=== PATIENT | female | born 1950 | race Caucasian/White ===

== ENCOUNTER 2017-11-08 08:00 | Observation (INO) | payer MEDICARE, OTHER ==
[~2017-11-08] VITALS: Ht 167.6 cm; Wt 102.5 kg
[~2017-11-08 08:00] MED LIST: AMBIEN10 MG PO; AMIODARONE HCL400 MG PO; ASPIRIN325 MG PO; BACLOFEN PO; BENTYL10 MG PO; ECOTRIN81 MG PO; FLURAZEPAM HCL30 MG PO; LISINOPRIL40 MG PO; LORTAB 10-5001 EACH PO; MULTI VIT; OMEPRAZOLE40 MG PO; SOMA350 MG PO; TYLENOL 4 PO; VITAMIN D2000 UNIT PO; VITAMIN E400 UNI3 PO
[2017-11-08] MEDS ORDERED: SODIUM CHLORIDE 0.9% 500ML 1,000 ML ONE ×2 (08:39→09:39)
[2017-11-08] MEDS ORDERED: SODIUM CHLORIDE 0.9% 500ML 500 ML ONE (08:39)
[2017-11-08] MEDS ORDERED: SODIUM CHLORIDE 0.9% 1000ML 1,000 ML IV STA (08:56)
[2017-11-08 09:49] LABS: BASOPHILS % 0.1 % (0.0-1.0); HEMATOCRIT 37.9 % (34.2-44.1); HEMOGLOBIN 11.9 g/dL (12.0-16.0); LYMPHOCYTES # (AUTO) 0.9 (1.0-3.2); LYMPHOCYTES % 13.2 % (18.0-39.1); MEAN CORPUSCULAR HEMOGLOBIN 31.2 pg (28-32); MEAN CORPUSCULAR HGB CONC 31.4 g/dL (31-35); MEAN CORPUSCULAR VOLUME 99.2 fL (81-99); MONOCYTES # (AUTO) 0.9 (0.2-0.8); MONOCYTES % 13.4 % (4.4-11.3); NEUTROPHILS # (AUTO) 5.1 (2.1-6.9); NEUTROPHILS % 72.9 % (38.7-80.0); PLATELET COUNT 200 x10e3/uL (140-360); RED BLOOD COUNT 3.82 x10e6/uL (3.6-5.1); RED CELL DISTRIBUTION WIDTH 13.9 % (11.7-14.4)
[2017-11-08 10:06] LABS: INR 0.9; PARTIAL THROMBOPLASTIN TIME 33.7 seconds (23.8-35.5); PROTHROMBIN TIME 12.6 seconds (11.9-14.5)
[2017-11-08 10:16] LABS: ALBUMIN 3.4 g/dL (3.5-5.0); ALBUMIN/GLOBULIN RATIO 1.1 (0.8-2.0); CALCIUM 9.2 mg/dL (8.4-10.2); CREATININE, SERUM 1.23 mg/dL (0.57-1.11)
[2017-11-08 10:49] LABS: CREATINE KINASE MB 1.4 ng/mL (0.00-5.00); TROPONIN I 0.019 ng/mL (0-0.300)
[2017-11-08 11:09] LABS: BILIRUBIN,URINE NEGATIVE (NEGATIVE); CLARITY,URINE CLEAR (CLEAR); COLOR,URINE YELLOW (YELLOW); KETONES,URINE NEGATIVE (NEGATIVE); LEUKOCYTE ESTERASE ,URINE NEGATIVE (NEGATIVE); NITRITE,URINE NEGATIVE (NEGATIVE); PROTEIN,URINE DIPSTICK NEGATIVE (NEGATIVE); URINE UROBILINOGEN 0.2 mg/dL (0.2 - 1)
--- NOTE | 2017-11-08 11:20 | Diagnostic Imaging Report ---
EXAM: CHEST SINGLE (PORTABLE) DATE: 11/08/2017 8:56 AM INDICATION: Shortness of breath COMPARISON: 02/02/2017 FINDINGS: Heart upper limits of normal, stable. Aortic vascular calcifications and hilar prominence similar. There is mild prominence of the interstitium. No pneumothorax or focal consolidation. IMPRESSION: Questionable mild edema. Signed by: Dr. Garrett Russell MD on 11/08/2017 11:16 AM
[2017-11-08] MEDS ORDERED: ONDANSETRON HCL INJ 2 MG/ML VIAL IV STA (12:05)
--- NOTE | 2017-11-08 12:13 | Diagnostic Imaging Report ---
EXAMINATION: Head CT HISTORY: Status post fall, head trauma, pain on the left side, vertigo COMPARISON: None. TECHNIQUE: Multidetector axial images were obtained without contrast from the foramen magnum to the vertex . The images were reconstructed using brain and bone algorithms. Thin section brain images were reformatted into coronal and sagittal planes. Intravenous contrast: None. Motion/streaking artifact limits the evaluation of the skull base and posterior cranial fossa. FINDINGS: Parenchyma: 1. No abnormal densities. 2. No mass or hemorrhage. No CT evidence of acute territorial vascular insult. Extra-axial spaces:No abnormal density. No extra-axial fluid collections Brain volume: Normal for age. Ventricles: No hydrocephalus or displacement. Arteries: No density suggestive of thrombus. Dural sinuses: No abnormal density. Extra-axial spaces: No abnormal density. Foramen magnum: No mass, Chiari malformation, or basilar invagination. Sella: No obvious mass. Paranasal/mastoid sinuses: Imaged portions unremarkable. Skull/Scalp: No lytic or blastic lesions. No fractures. IMPRESSION: Normal head CT. Particularly no post traumatic intracranial hemorrhage is seen. Signed by: Dr. Jemma Bahena M.D. on 11/08/2017 12:09 PM
[2017-11-08] MEDS ORDERED: SODIUM CHLORIDE 0.9% 1000ML 1,000 ML ONE (12:14)
[2017-11-08] MEDS ORDERED: SODIUM CHLORIDE 0.9% 1000ML 1,000 ML IV SCH (12:15)
--- NOTE | 2017-11-08 12:26 | Diagnostic Imaging Report ---
ADDENDUM #1 Addendum: Dilated pulmonary trunk, which can be seen in the setting of pulmonary hypertension. Signed by: Dr. Garrett Russell MD on 11/08/2017 1:22 PM ORIGINAL REPORT EXAM: CTA Chest WITH and without contrast. DATE: 11/08/2017 11:04 AM INDICATION: Pain. Concern for dissection. COMPARISON: None TECHNIQUE: CT angiogram of the chest was obtained before and after the administration of IV contrast. Prospective gating was performed. Images reviewed in the axial, coronal, and sagittal planes. 3D reconstructions performed on off-line workstation. Reformatted axial MIP images were obtained and reviewed. IV Contrast: See technologist worksheet. Total DLP: 992 mGy*cm Est. Eff. Dose DLP x 0.015 x size factor mSv (CTDIvol has been reviewed and is below limits set by [facility]). FINDINGS: Lines and Tubes: None. Lower Neck: The visualized thyroid gland is grossly unremarkable with no suspicious or significant nodule identified. Heart and Great Vessels: The pulmonary artery measure 42 mm. The cardiothoracic radio measures 15/27. No pericardial effusion. No intracardiac filling defect identified. No central pulmonary embolus. Peripheral evaluation limited. Moderate aortic atherosclerotic changes present. No dissection identified. Aortic Annulus: 24 mm. Sinus of Valsalva: 35 mm. Ascending Aorta at level of PA: 35 mm. Mid Arch: 32 mm. Proximal Descendin mm. Mid Descendin mm. Distal Descendin mm. Other: At least moderate narrowing proximal left subclavian artery. Lymph Nodes: No suspicious adenopathy. Lungs: Concavity posterior wall trachea consistent with expiratory imaging. Scattered groundglass and linear opacities statistically represent atelectasis. No pneumothorax or pleural effusion. Upper abdomen: Limited evaluation. No acute findings. Bones and Soft Tissues: No acute findings. IMPRESSION: 1. No aortic aneurysm or dissection. 2. No central pulmonary embolus. 3. At least moderate narrowing proximal left subclavian artery. Signed by: Dr. Garrett Russell MD on 11/08/2017 12:22 PM
[2017-11-08] MEDS ORDERED: SODIUM CHLORIDE 0.9% 50ML 50 ML ONE (13:26)
[2017-11-08] MEDS ORDERED: IOPAMIDOL 370 MG/ML 200 ML INFUS..BTL INJ ONE (13:26)
[2017-11-08] MEDS ORDERED: ONDANSETRON HCL INJ 2 MG/ML VIAL IV PRN (13:30)
[2017-11-08] MEDS ORDERED: ALBUTEROL/IPRATROPIUM 3 ML NEB NEB PRN (13:30)
[2017-11-08] MEDS: SODIUM CHLORIDE 0.9% 1000ML 1,000 ML IV SCH (16:40)
[2017-11-08] MEDS: DOXYCYCLINE HYCLATE TABLET 100 MG TAB PO SCH (16:41)
[2017-11-08] MEDS ORDERED: LISINOPRIL10 MG PO (18:04)
[2017-11-08] MEDS ORDERED: BACLOFEN10 MG PO (18:04)
[2017-11-08] MEDS ORDERED: AMBIEN10 MG PO (18:04)
[2017-11-08] MEDS ORDERED: AMLODIPINE BESYL5 MG PO (18:07)
[2017-11-08] MEDS ORDERED: TYLENOL WITH C1 EAC1 PO (18:07)
[2017-11-08] MEDS ORDERED: MULTIVITAMINS1 EAC7 PO (18:07)
[2017-11-08] MEDS ORDERED: ECOTRIN81 MG PO (18:09)
[2017-11-08 18:23] VITALS: BP 126/57
[2017-11-08 18:30] VITALS: BP 126/57
[2017-11-08 18:59] LABS: CREATINE KINASE MB 1.1 ng/mL (0.00-5.00); TROPONIN I 0.021 ng/mL (0-0.300)
[2017-11-08] MEDS: ACETAMINOPHEN/CODEINE 300MG - 30MG TAB PO PRN (21:02)
[2017-11-08] MEDS: BACLOFEN 10 MG TAB PO SCH (21:02)
[2017-11-08] MEDS: DICYCLOMINE HCL 10 MG CAP PO SCH (21:02)
[2017-11-08] MEDS: METHYLPREDNISOLONE SOD SUCC 40 MG/ML VIAL IV SCH (21:02)
[2017-11-08] MEDS: ZOLPIDEM TARTRATE 10 MG TAB PO SCH (21:02)
[2017-11-08 21:05] VITALS: BP 130/60
[2017-11-08 21:06] VITALS: BP 130/60
[2017-11-09] VITALS (7 sets, daily range): BP systolic 112–149; BP diastolic 47–75
[2017-11-09] MEDS: SODIUM CHLORIDE 0.9% 1000ML 1,000 ML IV SCH ×2 (00:07→19:50)
[2017-11-09 07:00] LABS: BASOPHILS % 0.2 % (0.0-1.0); HEMATOCRIT 35.5 % (34.2-44.1); HEMOGLOBIN 11.4 g/dL (12.0-16.0); LYMPHOCYTES # (AUTO) 0.8 (1.0-3.2); LYMPHOCYTES % 18.8 % (18.0-39.1); MEAN CORPUSCULAR HEMOGLOBIN 31.7 pg (28-32); MEAN CORPUSCULAR HGB CONC 32.1 g/dL (31-35); MEAN CORPUSCULAR VOLUME 98.6 fL (81-99); MONOCYTES # (AUTO) 0.1 (0.2-0.8); MONOCYTES % 2.8 % (4.4-11.3); NEUTROPHILS # (AUTO) 3.3 (2.1-6.9); NEUTROPHILS % 77.3 % (38.7-80.0); PLATELET COUNT 193 x10e3/uL (140-360); RED CELL DISTRIBUTION WIDTH 13.9 % (11.7-14.4)
[2017-11-09 07:37] LABS: ANION GAP 9.5 mmol/L (8-16); BLOOD UREA NITROGEN 9 mg/dL (7-26); BUN/CREATININE RATIO 13 (6-25); CALCIUM 8.7 mg/dL (8.4-10.2); CARBON DIOXIDE 25 mmol/L (22-29); CHLORIDE 108 mmol/L (98-107); CREATININE, SERUM 0.68 mg/dL (0.57-1.11); EST GLOMERULAR FILTRATION RATE > 60 ML/MIN (60-); GLUCOSE 120 mg/dL (74-118); MAGNESIUM 1.7 MG/DL (1.3-2.1); POTASSIUM 4.5 mmol/L (3.5-5.1); SODIUM 138 mmol/L (136-145)
[2017-11-09 08:04] LABS: CREATINE KINASE MB 0.8 ng/mL (0.00-5.00); TROPONIN I 0.016 ng/mL (0-0.300)
[2017-11-09] MEDS ORDERED: ASPIRIN 81 MG ENTERIC COATED PO SCH (09:00)
[2017-11-09] MEDS: AMLODIPINE BESYLATE 5 MG TAB PO SCH ×2 (09:33→16:27)
[2017-11-09] MEDS: MULTIVITAMINS/MINERALS TAB PO SCH (09:33)
[2017-11-09] MEDS: DICYCLOMINE HCL 10 MG CAP PO SCH ×4 (09:33→21:07)
[2017-11-09] MEDS: ASPIRIN 81 MG ENTERIC COATED PO SCH (09:33)
[2017-11-09] MEDS: BACLOFEN 10 MG TAB PO SCH ×3 (09:33→21:07)
[2017-11-09] MEDS: PANTOPRAZOLE SOD 40 MG TABEC PO SCH ×2 (09:33→16:27)
[2017-11-09] MEDS: AMIODARONE HCL 200 MG TAB PO SCH (09:33)
[2017-11-09] MEDS: LISINOPRIL 20 MG TAB PO SCH ×2 (09:33→16:27)
[2017-11-09] MEDS: METHYLPREDNISOLONE SOD SUCC 40 MG/ML VIAL IV SCH ×2 (09:33→21:07)
[2017-11-09] MEDS: DOXYCYCLINE HYCLATE TABLET 100 MG TAB PO SCH ×2 (09:34→16:27)
[2017-11-09] MEDS: VITAMIN E 400 UNIT CAP PO SCH (09:34)
[2017-11-09] MEDS ORDERED: GUAIFENESIN/DEXTROMETHORPHAN LIQD 5 ML UDC NG PRN (12:30)
--- NOTE | 2017-11-09 14:30 | Diagnostic Imaging Report ---
PROCEDURE:C-SPINE COMPLETE COMPARISON:None available. INDICATIONS:NECK PAIN FINDINGS: The lateral view is visualized from the skull base to T2. The vertebral bodies are well-aligned. Vertebral body heights are maintained. There are no fractures, lytic or blastic lesions. Degenerative changes, most severe at C4-C5, C5-C6, and C6-C7. The C1/C2-odontoid interval is normal. The pre-vertebral soft tissues are normal. CONCLUSION: No acute abnormality. Multilevel degenerative changes, most severe at C4-C7. Dictated by: Dusty Stock M.D. on 11/09/2017 at 14:38 Electronically approved by: Dusty Stock M.D. on 11/09/2017 at 14:38
[2017-11-09] MEDS: GUAIFENESIN/DEXTROMETHORPHAN LIQD 5 ML UDC NG PRN ×2 (16:50→21:07)
[2017-11-09] MEDS: ZOLPIDEM TARTRATE 10 MG TAB PO SCH (21:07)
[2017-11-09] MEDS: ACETAMINOPHEN/CODEINE 300MG - 30MG TAB PO PRN (21:11)
[2017-11-10] VITALS: BP 132/60
[2017-11-10 02:01] VITALS: BP 155/72
[2017-11-10 04:00] VITALS: BP 130/60
[2017-11-10] MEDS: SODIUM CHLORIDE 0.9% 1000ML 1,000 ML IV SCH (05:07)
[2017-11-10 08:36] VITALS: BP 135/63
[2017-11-10] MEDS: MULTIVITAMINS/MINERALS TAB PO SCH (09:07)
[2017-11-10] MEDS: BACLOFEN 10 MG TAB PO SCH (09:07)
[2017-11-10] MEDS: DICYCLOMINE HCL 10 MG CAP PO SCH (09:07)
[2017-11-10] MEDS: ASPIRIN 81 MG ENTERIC COATED PO SCH (09:07)
[2017-11-10] MEDS: METHYLPREDNISOLONE SOD SUCC 40 MG/ML VIAL IV SCH (09:07)
[2017-11-10] MEDS: LISINOPRIL 20 MG TAB PO SCH (09:07)
[2017-11-10] MEDS: DOXYCYCLINE HYCLATE TABLET 100 MG TAB PO SCH (09:07)
[2017-11-10] MEDS: PANTOPRAZOLE SOD 40 MG TABEC PO SCH (09:07)
[2017-11-10] MEDS: VITAMIN E 400 UNIT CAP PO SCH (09:07)
[2017-11-10] MEDS: AMLODIPINE BESYLATE 5 MG TAB PO SCH (09:07)
[2017-11-10] MEDS: AMIODARONE HCL 200 MG TAB PO SCH (09:07)
[2017-11-10 12:35] VITALS: BP 154/68
--- NOTE | 2017-11-10 14:59 | Consultation ---
DATE OF CONSULTATION: November 09, 2017 CARDIOLOGY CONSULTATION ATTENDING PHYSICIAN: Dominic Styles MD. Thank you so much for asking me to see this nice lady again in consultation. Ms. Gordon is a charming, 67-year-old woman known to me for many years, who presented to the emergency room after falling down. HISTORY OF PRESENT ILLNESS: The patient reports that she has fallen down twice over the last weekend, striking the back of her head but without loss of consciousness. She reports she has been ill with coughing and bronchitis. PAST MEDICAL HISTORY: Significant for a hospitalization in July 2017 at [facility] for fluctuations in blood pressure after she changed various medicines and stopped some. PAST MEDICAL HISTORY: Also significant for diagnosis of fibromyalgia, multinodular goiter, episode of atrial fibrillation in 1997, cholecystectomy in 1992, remote gastric stapling, abdominoplasty. She has had difficult hypertension. RECENT HOME MEDICATIONS 1. Aspirin 81 mg daily. 2. Omeprazole 40 mg daily. 3. Furosemide 40 mg daily. 4. Amiodarone 400 mg daily. 5. Lisinopril 40 mg twice daily. 6. Amlodipine 5 mg twice daily. 7. Baclofen 10 mg t.i.d. 8. Gabapentin 300 mg twice a day. 9. Ambien 10 mg as needed. 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 VITALS: Blood pressure is 149/75. Pulse 60 and regular. HEENT: Otherwise unremarkable. NECK: No jugular venous distention. No bruits. THORAX: Heart sounds S1 and S2 are equal. There is a faint 1/6 systolic murmur. LUNGS: Clear. ABDOMEN: Protuberant. EXTREMITIES: No cyanosis, clubbing or edema. EKG shows sinus rhythm with poor R-wave progression. No ST or T wave changes. LABORATORY STUDIES: Remarkable for glucose 120, otherwise unremarkable. ASSESSMENT 1. Bronchitis. 2. Vertigo and falling, chronic. 3. Hypertension, stable. 4. Coronary disease, clinically stable. PLAN: Agree with antibiotics and antitussive medications. Will monitor her rhythm with you. Thank you for asking me to see her in consultation. Job#: [id number]
== END 2017-11-10 13:54 | disposition home or self-care (01) ==
LOC: ER 08:00 → ERHOLD 16:37 → IMCU 16:41
DX: R42 Dizziness and giddiness (principal); J40 Bronchitis, not specified as acute or chronic; R29.6 Repeated falls; I10 Essential (primary) hypertension; I48.91 Unspecified atrial fibrillation; I25.10 Atherosclerotic heart disease of native coronary artery without angina pectoris; H54.8 Legal blindness, as defined in USA; Q14.1 Congenital malformation of retina; Z98.84 Bariatric surgery status; Z79.82 Long term (current) use of aspirin
CPT/HCPCS: 36415 ×2; 70450; 71010; 71275; 72050; 80048; 80053; 81001; 82550 ×2; 82553 ×2; 82948; 83605; 83735; 84443; 84484 ×2; 85025 ×2; 85610; 85730; 87086; 93005; 97139; 99284; G0378 ×3; J2405; J2920 ×3; J7030 ×2; J7040; Q9967

== ENCOUNTER → 2018-01-06 | Outpatient (CLI) | payer MEDICARE, OTHER ==
[~2018-01-06] MED LIST changes: +AMLODIPINE BESYL5 MG PO; +BACLOFEN10 MG PO; +LISINOPRIL10 MG PO; +MULTIVITAMINS1 EAC7 PO; +TYLENOL WITH C1 EAC1 PO
== END ==
LOC: RAD 09:21
PROVIDERS: ATTEND Family Medicine
DX: I87.303 Chronic venous hypertension (idiopathic) without complications of bilateral lower extremity (principal)
CPT/HCPCS: 93970

== ENCOUNTER → 2018-02-23 | Outpatient (CLI) | payer MEDICARE, OTHER ==
[~2018-02-23] MED LIST changes: +FENTANYL CITRATE/PF 100MCG/2 ML INJ ONE; +LIDOCAINE HCL 2% LOCAL INJ 5 ML SDV VIAL INJ ONE; +MIDAZOLAM HCL 2 MG/2 ML VIAL ONE; +PROPOFOL IV EMULSION 10 MG/ML 20 ML VIAL ONE
--- NOTE | 2018-02-23 11:50 | Diagnostic Imaging Report ---
MRI of the right shoulder without contrast. History: Shoulder pain. Rotator cuff tear. Fall. Decreased range of motion. Comparison: None Technique: Coronal PD FS, sagital PD FS, and axial PD and PD FS. Findings: Rotator cuff: There is rotator cuff tendinosis with midsubstance degeneration and mild articular sided fraying involving the anterior fibers of the supraspinatus tendon at the humeral insertion site. No rotator cuff tear, muscle atrophy or retraction. Osseous acromion complex: There is a type II acromion with mild lateral downsloping. There is moderate degenerative arthrosis at the acromioclavicular joint with undersurface spurring and narrowing of the supraspinatus tendon outlet. There is mild subacromial/subdeltoid bursitis. Glenohumeral joint: There is degeneration and fraying of the labrum. The humeral head is well-seated in the glenoid fossa. The articular cartilage surfaces are intact. Biceps tendon: The biceps tendon is intact. Other findings: There is a moderate amount of bone marrow edema in the superior-lateral humeral head best seen on series 3 image 14 through 17. This is consistent with a contusion. No cortical fracture is seen. Impression: Moderate amount of bone marrow edema in the superior-lateral humeral head best consistent with a contusion. No cortical fracture is seen. Rotator cuff tendinosis with mild articular sided fraying involving the anterior fibers of the supraspinatus tendon at the humeral insertion site. No rotator cuff tear, muscle atrophy or retraction. Moderate degenerative arthrosis at the acromioclavicular joint with narrowing of the supraspinatus tendon outlet and mild subacromial/subdeltoid bursitis. Signed by: Dr. Deonte Nelson M.D. on 02/23/2018 11:46 AM
== END ==
LOC: MRI 09:26
PROVIDERS: ATTEND Specialist
DX: S46.091A Other injury of muscle(s) and tendon(s) of the rotator cuff of right shoulder, initial encounter (principal)
CPT/HCPCS: 73221; J2001; J2250

== ENCOUNTER 2018-05-29 07:14 | Emergency (ER) | payer MEDICARE, OTHER ==
[~2018-05-29] VITALS: Ht 172.7 cm; Wt 90.7 kg
[~2018-05-29 07:14] MED LIST changes: -FENTANYL CITRATE/PF 100MCG/2 ML INJ ONE; -LIDOCAINE HCL 2% LOCAL INJ 5 ML SDV VIAL INJ ONE; -MIDAZOLAM HCL 2 MG/2 ML VIAL ONE; +ONDANSETRON HCL INJ 2 MG/ML VIAL IV ONE; -PROPOFOL IV EMULSION 10 MG/ML 20 ML VIAL ONE
[2018-05-29] MEDS ORDERED: ONDANSETRON HCL INJ 2 MG/ML VIAL IV STA (07:21)
[2018-05-29] MEDS ORDERED: SODIUM CHLORIDE 0.9% 500ML 500 ML IV ONE (07:30)
[2018-05-29 07:47] LABS: BASOPHILS % 0.2 % (0.0-1.0); EOSINOPHILS # (AUTO) 0.1 (0.0-0.4); EOSINOPHILS % 0.5 % (0.0-6.0); HEMATOCRIT 44.1 % (34.2-44.1); HEMOGLOBIN 14.7 g/dL (12.0-16.0); LYMPHOCYTES # (AUTO) 2.5 (1.0-3.2); LYMPHOCYTES % 26.4 % (18.0-39.1); MEAN CORPUSCULAR HEMOGLOBIN 31.3 pg (28-32); MEAN CORPUSCULAR HGB CONC 33.3 g/dL (31-35); MEAN CORPUSCULAR VOLUME 93.8 fL (81-99); MONOCYTES # (AUTO) 0.8 (0.2-0.8); MONOCYTES % 8.7 % (4.4-11.3); NEUTROPHILS % 63.9 % (38.7-80.0); PLATELET COUNT 314 x10e3/uL (140-360); RED CELL DISTRIBUTION WIDTH 13.2 % (11.7-14.4)
[2018-05-29 07:57] LABS: INR 1.03; PARTIAL THROMBOPLASTIN TIME 29.6 seconds (23.8-35.5); PROTHROMBIN TIME 12.7 seconds (11.9-14.5)
[2018-05-29 08:07] LABS: ALBUMIN 4.4 g/dL (3.5-5.0); ALBUMIN/GLOBULIN RATIO 1.3 (0.8-2.0); ANION GAP 14.3 mmol/L (8-16); CREATININE, SERUM 1.18 mg/dL (0.57-1.11); MAGNESIUM 2.3 MG/DL (1.3-2.1)
[2018-05-29 08:12] LABS: POTASSIUM 4.3 mmol/L (3.5-5.1)
[2018-05-29 08:19] LABS: CREATINE KINASE MB 1.9 ng/mL (0-5.0)
--- NOTE | 2018-05-29 08:31 | Diagnostic Imaging Report ---
EXAMINATION: Head and face CT without contrast. HISTORY: Status post fall, hit in face, pain COMPARISON: Head CT on 11/08/2017 TECHNIQUE: Multidetector axial images were obtained without contrast from the foramen magnum to the vertex and over the face. The images were reconstructed using brain and bone algorithms. Thin section brain images were reformatted into coronal and sagittal planes. Intravenous contrast: None. Head CT findings: Skull: No lytic or blastic lesions. No fractures. Parenchyma: Normal. No mass, hemorrhage or CT evidence of acute vascular insult. Brain volume: Normal for age. Ventricles: No hydrocephalus or displacement. Arteries: No density suggestive of thrombus. Dural sinuses: No abnormal density. Extra-axial spaces: No abnormal density. Foramen magnum: No mass, Chiari malformation, or basilar invagination. Sella: No obvious mass. Paranasal/mastoid sinuses: Imaged portions unremarkable. Face CT findings: Bones: Unremarkable. Facial soft tissues: Large left periorbital soft tissue swelling and hematoma Orbits contents: Unremarkable. Paranasal sinuses and drainage pathways: Clear and patent. Nasal septum and nasal cavities: Midline. Anatomic variations: No significant anatomic variations. Teeth: No acute abnormality of the visualized teeth. IMPRESSION: 1. No intracranial abnormalities, particularly no posttraumatic hemorrhage, unchanged from head CT on 11/08/2017. 2. Large left periorbital soft tissue hematoma without underlying fractures. 3. No acute facial fractures. Signed by: Dr. Jemma Bahena M.D. on 05/29/2018 8:28 AM
--- NOTE | 2018-05-29 08:31 | Diagnostic Imaging Report ---
Portable chest x-ray INDICATION: Fall COMPARISON: CTA chest 11/08/2017 FINDINGS: Frontal view of the chest obtained at 0804 hours. The cardiac silhouette is enlarged and stable in size. The aortic arch is ectatic and stable. There is prominence of the pulmonary arteries consistent with pulmonary artery hypertension. The lungs demonstrate no mass or infiltrate. No interstitial thickening. The costophrenic angles are sharp. There is no pneumothorax. The osseous structures are intact. No focal osseous lesions. IMPRESSION: 1. No acute traumatic pathology. 2. Stable cardiomegaly and enlarged pulmonary arteries suggestive of pulmonary artery hypertension. Signed by: Dr. Lenny Leon MD on 05/29/2018 8:28 AM
--- NOTE | 2018-05-29 08:36 | Diagnostic Imaging Report ---
EXAMINATION: CT of the cervical spine HISTORY: Status post fall, trauma, head and neck pain COMPARISON: None available TECHNIQUE: Multidetector helical axial images were obtained without contrast from the foramen magnum to T1. The images were reconstructed using bone and soft tissue algorithms and were viewed in axial, sagittal and coronal planes. FINDINGS: Alignment: Normal alignment and lordosis Soft tissues: Partially visualized hypoattenuating subcentimeter nodules in both lobes of the thyroid gland. The thyroid gland overall is mildly enlarged without associated narrowing of the airway. Vertebrae: Normal height and density. No acute fracture, infection or neoplasm Degenerative changes: C1-C2: Normal C2-C3: Normal C3-C4: Normal C4-C5: Uncovertebral and facet arthrosis mainly on the right side. Moderate right foraminal stenoses. Minimal canal narrowing. C5-C6: Small disc osteophyte complex formation, bilateral uncovertebral and facet arthrosis. Mild canal and moderate left foraminal stenosis. C6-C7: Small disc osteophyte and mild uncovertebral arthrosis without significant stenoses C7-T1: Normal IMPRESSION: 1. No acute cervical spine postraumatic abnormalities. 2. Mild chronic degenerative changes as detailed above. Note: Acute postraumatic spinal cord, vascular or ligamentous injuries cannot adequately be assessed by CT. Signed by: Dr. Jemma Bahena M.D. on 05/29/2018 8:33 AM
[2018-05-29] MEDS ORDERED: MORPHINE SULFATE 2 MG/ML SYR IV STA (08:53)
[2018-05-29 09:49] LABS: BILIRUBIN,URINE NEGATIVE (NEGATIVE); CLARITY,URINE HAZY (CLEAR); COLOR,URINE YELLOW (YELLOW); KETONES,URINE NEGATIVE (NEGATIVE); LEUKOCYTE ESTERASE ,URINE NEGATIVE (NEGATIVE); NITRITE,URINE NEGATIVE (NEGATIVE); PROTEIN,URINE DIPSTICK TRACE (NEGATIVE); URINE UROBILINOGEN 0.2 mg/dL (0.2 - 1)
[2018-05-29 09:54] LABS: BACTERIA,URINE FEW /HPF; EPITHELIAL CELLS,URINE FEW /LPF; RBC,URINE 0-5 /HPF (0-5); WBC,URINE (MAN) 0-5 /HPF (0-5)
[2018-05-29] MEDS ORDERED: ONDANSETRON HCL INJ 2 MG/ML VIAL IV ONE (10:15)
[2018-05-29] MEDS ORDERED: MORPHINE SULFATE 2 MG/ML SYR IV ONE ×2 (11:15→15:00)
[2018-05-29] MEDS ORDERED: PROMETHAZINE 12.5MG/ NACL 0.9% 12.5 MG/50 ML BAG IV ONE (11:30)
[2018-05-29 19:02] VITALS: BP 109/53
== END 2018-05-29 22:10 ==
LOC: ER 07:14
DX: S00.83XA Contusion of other part of head, initial encounter (principal); S00.12XA Contusion of left eyelid and periocular area, initial encounter; W01.0XXA Fall on same level from slipping, tripping and stumbling without subsequent striking against object, initial encounter; Y92.008 Other place in unspecified non-institutional (private) residence as the place of occurrence of the external cause; I10 Essential (primary) hypertension; M79.7 Fibromyalgia; B15.9 Hepatitis A without hepatic coma; I48.91 Unspecified atrial fibrillation; H35.52 Pigmentary retinal dystrophy
CPT/HCPCS: 36415; 70450; 70486; 71045; 72125; 80053; 81001; 82550; 82553; 83735; 84484; 85025; 85610; 85730; 87086; 93005; 99284; J2270; J2405; J2550; J7040

== ENCOUNTER → 2019-01-31 | Day surgery (SDC) | payer MEDICARE, OTHER ==
[~2019-01-31] MED LIST changes: +EPHEDRINE SULFATE INJ 50 MG/10 ML SYR ONE; +FENTANYL CITRATE/PF 100MCG/2 ML INJ ONE; +HYDRALAZINE HCL25 MG PO; +KETAMINE HCL INJ 50 MG/ML 10 ML VIAL ONE; +LASIX20 MG PO; +LIDOCAINE HCL 2% LOCAL INJ 5 ML SDV VIAL INJ ONE; +MAGNESIUM OXID400 MG PO; +MIDAZOLAM HCL 2 MG/2 ML VIAL ONE; -ONDANSETRON HCL INJ 2 MG/ML VIAL IV ONE; +PHENYLEPHRINE HCL 1% 10 MG/ML VIAL ONE; +PROPOFOL IV EMULSION 10 MG/ML 50 ML VIAL ONE
[2019-01-31 07:47] LABS: BASOPHILS % 0.2 % (0.0-1.0); EOSINOPHILS # (AUTO) 0.1 (0.0-0.4); EOSINOPHILS % 1.1 % (0.0-6.0); HEMATOCRIT 45.1 % (34.2-44.1); HEMOGLOBIN 14.1 g/dL (12.0-16.0); LYMPHOCYTES # (AUTO) 2.3 (1.0-3.2); LYMPHOCYTES % 35.4 % (18.0-39.1); MEAN CORPUSCULAR HEMOGLOBIN 30.1 pg (28-32); MEAN CORPUSCULAR HGB CONC 31.3 g/dL (31-35); MEAN CORPUSCULAR VOLUME 96.4 fL (81-99); MONOCYTES # (AUTO) 0.8 (0.2-0.8); MONOCYTES % 12.9 % (4.4-11.3); NEUTROPHILS # (AUTO) 3.3 (2.1-6.9); NEUTROPHILS % 50.2 % (38.7-80.0); PLATELET COUNT 255 x10e3/uL (140-360); RED BLOOD COUNT 4.68 x10e6/uL (3.6-5.1); RED CELL DISTRIBUTION WIDTH 13.2 % (11.7-14.4)
[2019-01-31 11:20] VITALS: BP 116/56
--- NOTE | 2019-01-31 11:35 | Operative Report ---
DATE OF PROCEDURE: 01/31/2019 SURGEON: Liban Styles MD PROCEDURES: Esophagogastroduodenoscopy with brushings and biopsies and a colonoscopy with biopsies. 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 INDICATIONS FOR COLONOSCOPY: Surveillance colonoscopy, personal history of colon polyps. MEDICATIONS: The patient was done under MAC, please see anesthesiologist's note. PROCEDURE IN DETAIL: With the patient in left lateral decubitus position, flexible fiberoptic Olympus gastroscope was introduced into the esophagus under direct visualization without any difficulty. There were scattered whitish plaques noted throughout the esophagus suspicious for Aleida. Brushings were obtained. A minute tongue of velvety red mucosa was noted to extend proximally from the GE junction. Biopsies were obtained. The scope was then advanced with ease into the stomach traversing a gastric stapling site that was intact and it was about 5 cm distal to the GE junction. An approximately 1 cm friable nodule was noted in the mid body along the posterior wall that was biopsied. A minute friable nodule was noted in the proximal antrum greater curvature and that was biopsied. Mucosa overlying the antrum and the distal body revealed some patchy intense erythema and moderate edema and biopsies were obtained and sent to stain for H pylori. The pylorus was of normal contour and shape, it was intubated with ease and the scope was advanced all the way to the second portion of the duodenum. The scope was then withdrawn slowly, mucosa overlying the proximal second portion and duodenal bulb appeared to be within normal limits. The scope was then withdrawn back into the stomach and retroflexed and the gastric stapling site and the retroflexed position appeared intact. The scope was then straightened out, it was subsequently withdrawn. The patient tolerated the procedure well. IMPRESSION: 1. Rule out Aleida esophagitis. 2. Rosado esophagus, biopsied. 3. Gastric stapling site intact, approximately 5 cm distal to GE junction. 4. Gastritis, biopsied. Biopsies sent to stain for Helicobacter pylori. 5. Friable nodule approximately 1 cm in size, mid body anterior wall, biopsied. 6. A friable minute nodule, proximal antrum, greater curvature, biopsied. PLAN: Follow up histology. Initiate Carafate 1 g p.o. a.c. t.i.d. and at bedtime. Decrease omeprazole to 40 mg one p.o. q.a.m. a.c. Diflucan 200 mg one p.o. daily x10 days. PROCEDURE IN DETAIL: The patient was then turned around after adequate lubrication of the anal canal, a flexible fiberoptic Olympus colonoscope was inserted into the rectum with ease and advanced all the way to the cecum. The scope was then withdrawn slowly, mucosa overlying the cecum and ascending colon appeared to be within normal limits. A short segment of the distal transverse colon was ulcerated and biopsies were obtained. The descending colon appeared to be within normal limits. Diverticular disease was noted to involve the sigmoid colon. The rectum appeared to be within normal limits. The scope was then retroflexed into the distal rectum and small internal hemorrhoids were noted, none of which was actively bleeding. The scope was then straightened out, it was subsequently withdrawn. The patient tolerated the procedure well. IMPRESSION: 1. Segmental colitis, distal transverse colon, biopsies obtained. 2. Diverticulosis. 3. Internal hemorrhoids, none actively bleeding. PLAN: Followup histology. Initiate high-fiber, low-fat diet. Initiate high-fiber supplement. The patient might benefit from a followup colonoscopy in 5 years. Liban Styles MD [facility]/[place] /[id number] cc: Israel Garay MD
== END | disposition home or self-care (01) ==
LOC: OR 06:56
PROVIDERS: ATTEND Internal Medicine Gastroenterology
DX: K22.70 Barrett's esophagus without dysplasia (principal); K31.7 Polyp of stomach and duodenum; K29.70 Gastritis, unspecified, without bleeding; K25.9 Gastric ulcer, unspecified as acute or chronic, without hemorrhage or perforation; K50.10 Crohn's disease of large intestine without complications; K59.03 Drug induced constipation; K21.0 Gastro-esophageal reflux disease with esophagitis; K57.30 Diverticulosis of large intestine without perforation or abscess without bleeding; K64.8 Other hemorrhoids; I48.91 Unspecified atrial fibrillation; I10 Essential (primary) hypertension; Z98.84 Bariatric surgery status; Z79.82 Long term (current) use of aspirin; Z68.32 Body mass index [BMI] 32.0-32.9, adult; Z86.19 Personal history of other infectious and parasitic diseases; Z80.0 Family history of malignant neoplasm of digestive organs
CPT/HCPCS: 36415; 43239; 45380; 85025; 87106; 87205; 88305; 88312; J2001; J2250; J2370; J2704; 43235; 45378

== ENCOUNTER 2019-02-24 23:41 | Inpatient (IN) | payer MEDICARE, OTHER ==
[~2019-02-24] VITALS: Ht 172.7 cm; Wt 94.3 kg
[~2019-02-24 23:41] MED LIST changes: -EPHEDRINE SULFATE INJ 50 MG/10 ML SYR ONE; -FENTANYL CITRATE/PF 100MCG/2 ML INJ ONE; -KETAMINE HCL INJ 50 MG/ML 10 ML VIAL ONE; -LIDOCAINE HCL 2% LOCAL INJ 5 ML SDV VIAL INJ ONE; -MIDAZOLAM HCL 2 MG/2 ML VIAL ONE; -PHENYLEPHRINE HCL 1% 10 MG/ML VIAL ONE; -PROPOFOL IV EMULSION 10 MG/ML 50 ML VIAL ONE
[2019-02-25] VITALS (10 sets, daily range): BP systolic 110–138; BP diastolic 64–82
[2019-02-25] MEDS ORDERED: DILTIAZEM HCL 5 MG/ML 5 ML VIAL IV STA ×2 (00:06→00:13)
[2019-02-25] MEDS ORDERED: AMIODARONE HCL 900 MG in DEXTROSE 5% 500ML 500 ML IV STA (00:28)
[2019-02-25] MEDS ORDERED: AMIODARONE HCL 900 MG in DEXTROSE 5% 500ML 500 ML IV ONE (00:30)
[2019-02-25] MEDS ORDERED: AMIODARONE HCL 150 MG/100 ML BAG IV ONE (00:30)
[2019-02-25 00:37] LABS: BASOPHILS % 0.3 % (0.0-1.0); EOSINOPHILS # (AUTO) 0.1 (0.0-0.4); EOSINOPHILS % 0.9 % (0.0-6.0); HEMATOCRIT 41.6 % (34.2-44.1); HEMOGLOBIN 13.5 g/dL (12.0-16.0); LYMPHOCYTES # (AUTO) 2.8 (1.0-3.2); LYMPHOCYTES % 42.6 % (18.0-39.1); MEAN CORPUSCULAR HGB CONC 32.5 g/dL (31-35); MEAN CORPUSCULAR VOLUME 95.4 fL (81-99); MONOCYTES # (AUTO) 0.7 (0.2-0.8); MONOCYTES % 10.1 % (4.4-11.3); NEUTROPHILS % 45.9 % (38.7-80.0); PLATELET COUNT 264 x10e3/uL (140-360); RED BLOOD COUNT 4.36 x10e6/uL (3.6-5.1)
[2019-02-25] MEDS ORDERED: AMIODARONE HCL 150MG 100 ML ONE (00:37)
[2019-02-25] MEDS ORDERED: AMIODARONE HCL 900 MG in DEXTROSE 5% 500ML 500 ML IV SCH ×2 (00:50→07:30)
[2019-02-25 00:52] LABS: CLARITY,URINE CLOUDY (CLEAR); COLOR,URINE YELLOW (YELLOW); LEUKOCYTE ESTERASE ,URINE 2+ (NEGATIVE); NITRITE,URINE NEGATIVE (NEGATIVE); PROTEIN,URINE DIPSTICK NEGATIVE (NEGATIVE)
[2019-02-25 00:53] LABS: BACTERIA,URINE MODERATE /HPF; BILIRUBIN,URINE NEGATIVE (NEGATIVE); EPITHELIAL CELLS,URINE FEW /LPF; KETONES,URINE NEGATIVE (NEGATIVE); RENAL EPITHELIAL CELLS,URINE FEW; TRANSITIONAL EPI CELLS,URINE MODERATE; URINE UROBILINOGEN 0.2 mg/dL (0.2 - 1); WBC,URINE (MAN) 21-50 /HPF (0-5)
[2019-02-25] MEDS ORDERED: AMIODARONE 900MG 500 ML IV ONE (00:56)
[2019-02-25] MEDS ORDERED: CEFTRIAXONE SOD 1 GM/NS 50 ML 50 ML IV ONE (01:00)
[2019-02-25 01:46] LABS: ALANINE AMINOTRANSFERASE 17 IU/L (0-55); ALBUMIN/GLOBULIN RATIO 1.3 (0.8-2.0); ALKALINE PHOSPHATASE 98 IU/L (40-150); ANION GAP 14.7 mmol/L (8-16); BLOOD UREA NITROGEN 15 mg/dL (7-26); BUN/CREATININE RATIO 19 (6-25); CALCIUM 10.1 mg/dL (8.4-10.2); CARBON DIOXIDE 22 mmol/L (22-29); CHLORIDE 105 mmol/L (98-107); CREATINE KINASE 52 IU/L (29-168); CREATININE, SERUM 0.79 mg/dL (0.57-1.11); EST GLOMERULAR FILTRATION RATE > 60 ML/MIN (60-); GLUCOSE 95 mg/dL (74-118); POTASSIUM 3.7 mmol/L (3.5-5.1); SODIUM 138 mmol/L (136-145)
--- NOTE | 2019-02-25 02:44 | Diagnostic Imaging Report ---
EXAMINATION: CHEST SINGLE (PORTABLE) INDICATION: ^cp ^[id number] ^[id number] COMPARISON: 05/29/2018 FINDINGS: AP view TUBES and LINES: None. LUNGS: Limited by body habitus. Lungs are well inflated. Central vascular congestion. No definite focal consolidation. PLEURA: No pleural effusion or pneumothorax. HEART AND MEDIASTINUM: The cardiac silhouette is enlarged. Aorta is tortuous. BONES AND SOFT TISSUES: No acute osseous lesion. Soft tissues are unremarkable. UPPER ABDOMEN: No free air under the diaphragm. IMPRESSION: Enlarged cardiac silhouette and central vascular congestion. No definite focal consolidation. Signed by: Dr. Dusty Stock MD on 02/25/2019 2:41 AM
[2019-02-25] MEDS ORDERED: FUROSEMIDE INJ 10 MG/ML 4 ML VIAL IV ONE (03:45)
[2019-02-25] MEDS ORDERED: FUROSEMIDE 20 MG TAB PO SCH (04:30)
[2019-02-25] MEDS ORDERED: FUROSEMIDE 20 MG TAB PO PRN (09:00)
[2019-02-25 09:33] LABS: CREATINE KINASE MB 1.1 ng/mL (0-5.0)
[2019-02-25] MEDS: MAGNESIUM OXIDE 400 MG TAB PO SCH (09:54)
[2019-02-25] MEDS: BACLOFEN 10 MG TAB PO SCH ×3 (09:54→21:23)
[2019-02-25] MEDS: PANTOPRAZOLE SOD 40 MG TABEC PO SCH ×2 (09:55→16:22)
[2019-02-25] MEDS ORDERED: FUROSEMIDE 40 MG TAB PO SCH (12:00)
[2019-02-25] MEDS: RIVAROXABAN 20 MG TABLET PO SCH (12:10)
[2019-02-25] MEDS: METOPROLOL TARTRATE 50 MG TAB PO SCH ×2 (12:10→21:23)
[2019-02-25] MEDS: CEFTRIAXONE SOD 1 GM/NS 50 ML 50 ML IV SCH (12:57)
--- NOTE | 2019-02-25 15:37 | Consultation ---
DATE OF CONSULTATION: 02/25/2019 Cardiology Consultation ADDITIONAL ATTENDING PHYSICIAN: Dominic Styles MD. Thank you so much for asking me to see this nice lady again in consultation. Ms. Gordon is a pleasant 68-year-old woman, known to me for many years, who presented to the emergency room overnight with a complaint of palpitations and shortness of breath. HISTORY OF PRESENT ILLNESS: The patient is a rather vague historian, has had intermittent palpitations for many years, but she reports that the palpitations became constant for approximately the last week associated with some shortness of breath as well and some ankle edema. She denies any chest pain or syncope. PAST MEDICAL HISTORY: Long and complex with atrial fibrillation first diagnosed in October 1997 at [facility]. She was diagnosed with multinodular goiter in the past, but had a biopsy that was benign. She has longstanding hypertension and fibromyalgia was first diagnosed [place] [address] Glen Arora. SURGICAL HISTORY: She has had previous cholecystectomy, gastric stapling, abdominoplasty, thyroid nodules removed by Dr. Cox in 2005. HOME MEDICATIONS: Her recent home medications have been Ecotrin 81 mg daily, omeprazole 40 mg twice a day, Tylenol with Codeine, multivitamin, furosemide 20 mg as needed for swelling, baclofen 20 mg t.i.d., Ambien 10 mg each bedtime, hydralazine 50 mg twice a day, lisinopril 40 mg twice a day, and magnesium oxide 400 mg daily. She has previously used amlodipine for hypertension, but caused edema. She previously used amiodarone, but it was discontinued about December 2017 when she had bronchitis, coughing, and syncope and it was felt that it might be causing bradycardia. FAMILY HISTORY: Father at 45 of an accident. Mother at 55 of cancer. Her more elderly in November 2016 of cancer. REVIEW OF SYSTEMS: CARDIAC: She had a normal Lexiscan Myoview in June 2017, which showed normal perfusion and EF 75%. SPECIAL SENSES: She has progressive vision loss. I am not quite sure what the diagnosis is, but is now legally blind. PHYSICAL EXAMINATION: GENERAL: At this time shows a pleasant, alert woman about 5 feet 8 inches tall, weighing 210 pounds. VITAL SIGNS: Blood pressure 123/67, pulse 135 and irregularly irregular. HEAD, EYES, EARS, NOSE, AND THROAT: Unremarkable. NECK: No jugular venous distention. No bruits. Thyroid seems slightly enlarged. THORAX: Heart sounds S1 and S2 are equal and irregularly irregular and rapid. LUNGS: Clear. ABDOMEN: Protuberant. EXTREMITIES: Have 1+ pretibial edema. PERTINENT LABORATORY STUDIES: Show BNP of 807. Urinalysis shows 21-50 white cells. Chemistry is relatively unremarkable. EKG shows atrial fib with rapid ventricular response. ASSESSMENT: 1. New-onset atrial fibrillation, previously treated with antiarrhythmic agents. 2. History of hypertension. 3. History of thyroid disorder. 4. Urinary tract infection. PLAN: I have discussed antiarrhythmics and anticoagulants with her and she is currently on IV amiodarone, but I will discontinue this as she has had atrial fib for probably more than a week. We will start her on Xarelto 20 mg daily as soon as possible and use metoprolol tartrate twice a day for rate control. We will consult Electrophysiology. She has had some bradycardia in the past and concerning that she may develop bradycardia here with beta-blockers or antiarrhythmics, I have told her that she may be best served by an ablation of atrial fibrillation after about six weeks of anticoagulation and that she could possibly wind up with a pacemaker if she develops recurrent bradycardia. drafting technician's check report on the chart suggests she may have EF of 30% now, that study is not yet ready for me to review, but it is possible that she may have tachycardia-induced cardiomyopathy and it could be reversible. Further management will be based on clinical course. Thank you for asking me to see her in consultation. MD BALJEET Ann/[place] /[id number]
[2019-02-25] MEDS ORDERED: NON-FORMULARY MEDICATION (Acetaminophen With Codeine (Tylenol With Codeine #4 Tablet) 1 TA PO PRN (15:45)
[2019-02-25] MEDS: ACETAMINOPHEN/CODEINE 300MG - 30MG TAB PO PRN (16:22)
[2019-02-25] MEDS: CODEINE SULFATE 30 MG TAB PO PRN (16:22)
[2019-02-25] MEDS ORDERED: LISINOPRIL 10 MG TAB PO SCH (17:00)
[2019-02-25] MEDS ORDERED: LISINOPRIL 20 MG TAB PO SCH (17:00)
--- NOTE | 2019-02-25 17:28 | History and Physical ---
HISTORY OF PRESENT ILLNESS: A 68-year-old white female, who has a past medical history positive for hypertension, paroxysmal atrial fibrillation, and cardiomyopathy, came here with chest pain and palpitations. REVIEW OF SYSTEMS: CARDIOVASCULAR: She had chest pain and palpitation. RESPIRATORY: No shortness of breath. No cough. GASTROINTESTINAL: No nausea. No vomiting. No diarrhea. GENITOURINARY: No frequency. No dysuria. ALLERGIES: NOT ALLERGIC TO ANY MEDICATION. SOCIAL HISTORY: She does not smoke. She does not drink. PAST MEDICAL HISTORY: Positive for paroxysmal atrial fibrillation and hypertension. PHYSICAL EXAMINATION: VITAL SIGNS: Blood pressure 123/67, temperature 98.0, heart rate 135 per minute, respiratory rate 17 per minute, and oxygen saturation 98%. HEART: Irregular rhythm and heart rate with a heart rate around 130 to 140 per minute. Normal S1, S2 sound. LUNGS: Clear bilaterally. ABDOMEN: Soft. LABORATORY DATA: BMP; sodium 138, potassium 3.7, chloride 105, CO2 22, BUN 15, creatinine 0.79, glucose 95. On the CBC; white blood count 6.53, hemoglobin 13.5, hematocrit 41.6, and platelet count 264,000. AST 19, ALT 17, total bilirubin 0.6, alkaline phosphatase 98. Echocardiogram showed ejection fraction of 30%. No evidence of pericardial effusion. No evidence of any severe valvular abnormality. She also had an EKG, which showed atrial fibrillation with rapid ventricular response. There is no evidence of any ST-segment elevation or depression. FINAL IMPRESSION: 1. Paroxysmal atrial fibrillation with rapid ventricular response. 2. Urinary tract infection. 3. Hypertension. 4. Cardiomyopathy. PLAN OF TREATMENT: We are going to continue with current medication regimen, which include the following medications: Amiodarone drip. Continue ceftriaxone 1 g IV once a day because of possible UTI, baclofen 20 mg three times a day. She is on furosemide 40 mg daily, magnesium oxide 400 mg daily, metoprolol 50 mg twice a day, Protonix 40 mg twice a day, Xarelto 20 mg daily, Ambien 10 mg at night p.r.n. for sleep. Also, at home, she is taking Tylenol one tablet q.6 hours as needed for pain, aspirin 81 mg daily, she is taking hydralazine 50 mg twice a day, and lisinopril 40 [address] a day[address] Osullivan on the case from Cardiology point of view. MD NIKA Adamson/[place] /[id number]
[2019-02-25 18:42] LABS: CREATINE KINASE 40 IU/L (29-168)
[2019-02-25] MEDS: ZOLPIDEM TARTRATE 10 MG TAB PO SCH (21:23)
[2019-02-26] VITALS (8 sets, daily range): BP systolic 88–116; BP diastolic 58–78
[2019-02-26] MEDS: ACETAMINOPHEN/CODEINE 300MG - 30MG TAB PO PRN ×3 (00:22→21:05)
[2019-02-26] MEDS: CODEINE SULFATE 30 MG TAB PO PRN ×3 (00:48→21:05)
[2019-02-26 05:47] LABS: BASOPHILS % 0.2 % (0.0-1.0); EOSINOPHILS # (AUTO) 0.1 (0.0-0.4); HEMATOCRIT 40.1 % (34.2-44.1); HEMOGLOBIN 12.8 g/dL (12.0-16.0); LYMPHOCYTES # (AUTO) 2.6 (1.0-3.2); LYMPHOCYTES % 41.6 % (18.0-39.1); MEAN CORPUSCULAR HEMOGLOBIN 30.3 pg (28-32); MEAN CORPUSCULAR HGB CONC 31.9 g/dL (31-35); MEAN CORPUSCULAR VOLUME 94.8 fL (81-99); MONOCYTES # (AUTO) 0.6 (0.2-0.8); MONOCYTES % 9.4 % (4.4-11.3); NEUTROPHILS % 47.5 % (38.7-80.0); PLATELET COUNT 237 x10e3/uL (140-360); RED BLOOD COUNT 4.23 x10e6/uL (3.6-5.1)
[2019-02-26 06:27] LABS: ALANINE AMINOTRANSFERASE 25 IU/L (0-55); ALBUMIN 3.6 g/dL (3.5-5.0); ALBUMIN/GLOBULIN RATIO 1.3 (0.8-2.0); ALKALINE PHOSPHATASE 100 IU/L (40-150); ANION GAP 13.3 mmol/L (8-16); BLOOD UREA NITROGEN 11 mg/dL (7-26); BUN/CREATININE RATIO 14 (6-25); CARBON DIOXIDE 26 mmol/L (22-29); CHLORIDE 107 mmol/L (98-107); EST GLOMERULAR FILTRATION RATE > 60 ML/MIN (60-); GLUCOSE 119 mg/dL (74-118); MAGNESIUM 2.2 MG/DL (1.3-2.1); POTASSIUM 4.3 mmol/L (3.5-5.1); SODIUM 142 mmol/L (136-145)
[2019-02-26 06:37] LABS: CREATINE KINASE MB 0.8 ng/mL (0-5.0)
[2019-02-26] MEDS: PANTOPRAZOLE SOD 40 MG TABEC PO SCH ×2 (08:20→16:07)
[2019-02-26] MEDS: FUROSEMIDE 40 MG TAB PO SCH (08:20)
[2019-02-26] MEDS: MAGNESIUM OXIDE 400 MG TAB PO SCH (08:20)
[2019-02-26] MEDS: ASPIRIN 81 MG ENTERIC COATED PO SCH (08:20)
[2019-02-26] MEDS: BACLOFEN 10 MG TAB PO SCH ×3 (08:20→21:05)
[2019-02-26] MEDS: RIVAROXABAN 20 MG TABLET PO SCH (08:20)
[2019-02-26] MEDS: METOPROLOL TARTRATE 50 MG TAB PO SCH (08:21)
[2019-02-26] MEDS ORDERED: ASPIRIN PO SCH (09:00)
[2019-02-26] MEDS: CEFTRIAXONE SOD 1 GM/NS 50 ML 50 ML IV SCH (12:11)
[2019-02-26] MEDS: METOPROLOL SUCCINATE 50 MG TAB XL PO SCH ×2 (16:36→22:00)
--- NOTE | 2019-02-26 16:42 | Progress Note ---
DATE: Internal Medicine Progress Note SUBJECTIVE: The patient is doing well, apparently, she is going for outpatient ablation by Dr. Littlejohn. No symptoms right now. PHYSICAL EXAMINATION: HEART: Showed irregularly irregular heart rate at around 120 to 130 per minute. LUNGS: Clear bilaterally. ABDOMEN: Soft. EXTREMITIES: Show no evidence of cyanosis or hematoma. VITAL SIGNS: Temperature 98.3, heart rate is 130 per minute, ranging between 118 to 130 per minute, respiratory rate is 28 per minute, blood pressure 104/78, pulse oximetry is 99%. IMPRESSION: 1. Atrial fibrillation with rapid ventricular response. 2. Urinary tract infection. 3. Hypertension. 4. Cardiomyopathy. PLAN OF TREATMENT: We are going to increase the metoprolol to 50 mg q.8 hours for a better heart rate control. Continue Rocephin 1 g IV once a day because of UTI. Continue Tylenol #3 one tablet q.6 hours as needed for pain, aspirin 81 mg daily, lioresal 20 mg 3 times a day, codeine sulfate 30 mg q.6 hours as needed. Continue furosemide 40 mg daily for CHF, magnesium oxide 400 mg daily, metoprolol 50 mg twice a day have been discontinued. Continue Protonix 40 mg twice a day, Xarelto 20 mg daily for anticoagulation, and Ambien 10 mg at night p.r.n. for sleep. MD NIKA Adamson/MARQUIS /[id number]
[2019-02-26] MEDS ORDERED: METOPROLOL SUCCINATE 50 MG TAB XL PO SCH (22:00)
[2019-02-26] MEDS: ZOLPIDEM TARTRATE 10 MG TAB PO SCH (22:39)
[2019-02-27 04:00] VITALS: BP 107/67
[2019-02-27] MEDS: METOPROLOL SUCCINATE 50 MG TAB XL PO SCH ×3 (04:46→21:00)
[2019-02-27 08:00] VITALS: BP 108/76
[2019-02-27] MEDS: MAGNESIUM OXIDE 400 MG TAB PO SCH (09:20)
[2019-02-27] MEDS: FUROSEMIDE 40 MG TAB PO SCH (09:20)
[2019-02-27] MEDS: ASPIRIN 81 MG ENTERIC COATED PO SCH (09:20)
[2019-02-27] MEDS: BACLOFEN 10 MG TAB PO SCH ×3 (09:20→22:05)
[2019-02-27] MEDS: RIVAROXABAN 20 MG TABLET PO SCH (09:20)
[2019-02-27] MEDS: PANTOPRAZOLE SOD 40 MG TABEC PO SCH ×2 (09:20→16:02)
[2019-02-27] MEDS: CEFTRIAXONE SOD 1 GM/NS 50 ML 50 ML IV SCH (12:16)
[2019-02-27 12:50] VITALS: BP 94/67
[2019-02-27] MEDS: CODEINE SULFATE 30 MG TAB PO PRN ×2 (14:11→21:00)
[2019-02-27] MEDS: ACETAMINOPHEN/CODEINE 300MG - 30MG TAB PO PRN ×2 (14:11→21:01)
[2019-02-27] MEDS ORDERED: DIGOXIN INJ 0.25 MG/ML 2 ML AMP IV NR (14:30)
[2019-02-27 17:35] VITALS: BP 116/90
--- NOTE | 2019-02-27 17:57 | Progress Note ---
DATE: Internal Medicine Progress Note SUBJECTIVE: She is feeling better except for some shortness of breath. OBJECTIVE: VITAL SIGNS: Blood pressure 194/67, heart rate 124 per minute, sometimes 140 per minute, temperature 98 degrees, respiratory rate 19 per minute, and oxygen saturation 100%. HEART: Showed irregularly irregular heart rate. No murmur or added sound. LUNGS: Clear bilaterally. ABDOMEN: Soft. FINAL IMPRESSION: 1. Atrial fibrillation with rapid ventricular response. 2. Urinary tract infection. 3. Hypertension. 4. Cardiomyopathy. PLAN OF TREATMENT: We are going to continue with current medication regimen. We are going to add digoxin also 0.5 mg at one time and then 0.25 mg one more time. Continue ceftriaxone 2 g IV daily. Continue with Tylenol No. 3 one tablet q.6 hours as needed for pain, aspirin 81 mg daily, baclofen 20 mg three times a day, codeine 30 mg q.6 hours as needed for pain. Continue furosemide 40 mg daily, magnesium oxide 400 mg daily, metoprolol 50 mg q.8 hours, Protonix 40 mg twice a day, Xarelto 20 mg daily, and Ambien 10 mg at night. The patient has been started on digoxin already to control heart rate, so will do elective ablation as an outpatient. Continue current medication regimen. MD NIKA Adamson/MARQUIS /[id number]
[2019-02-27] MEDS ORDERED: DIGOXIN INJ 0.25 MG/ML 2 ML AMP IV ONE (18:00)
[2019-02-27 20:00] VITALS: BP 94/72
[2019-02-27] MEDS: ZOLPIDEM TARTRATE 10 MG TAB PO SCH (22:05)
[2019-02-28] VITALS: BP 95/53
[2019-02-28] MEDS ORDERED: DIGOXIN INJ 0.25 MG/ML 2 ML AMP IV ONE ×2 (01:45)
[2019-02-28 04:00] VITALS: BP 94/60
[2019-02-28] MEDS: METOPROLOL SUCCINATE 50 MG TAB XL PO SCH ×2 (06:00→14:12)
[2019-02-28 08:00] VITALS: BP 132/84
[2019-02-28 08:48] VITALS: BP 132/84
[2019-02-28] MEDS: PANTOPRAZOLE SOD 40 MG TABEC PO SCH (08:48)
[2019-02-28] MEDS: MAGNESIUM OXIDE 400 MG TAB PO SCH (08:48)
[2019-02-28] MEDS: ASPIRIN 81 MG ENTERIC COATED PO SCH (08:48)
[2019-02-28] MEDS: FUROSEMIDE 40 MG TAB PO SCH (08:48)
[2019-02-28] MEDS: BACLOFEN 10 MG TAB PO SCH ×2 (08:48→14:12)
[2019-02-28] MEDS: RIVAROXABAN 20 MG TABLET PO SCH (08:48)
[2019-02-28 09:26] LABS: BASOPHILS % 0.3 % (0.0-1.0); EOSINOPHILS # (AUTO) 0.1 (0.0-0.4); HEMATOCRIT 40.7 % (34.2-44.1); HEMOGLOBIN 12.9 g/dL (12.0-16.0); LYMPHOCYTES % 34.2 % (18.0-39.1); MEAN CORPUSCULAR HEMOGLOBIN 29.9 pg (28-32); MEAN CORPUSCULAR HGB CONC 31.7 g/dL (31-35); MEAN CORPUSCULAR VOLUME 94.2 fL (81-99); MONOCYTES # (AUTO) 0.4 (0.2-0.8); MONOCYTES % 6.9 % (4.4-11.3); NEUTROPHILS # (AUTO) 3.3 (2.1-6.9); NEUTROPHILS % 57.4 % (38.7-80.0); PLATELET COUNT 230 x10e3/uL (140-360); RED BLOOD COUNT 4.32 x10e6/uL (3.6-5.1); RED CELL DISTRIBUTION WIDTH 12.7 % (11.7-14.4)
[2019-02-28] MEDS ORDERED: DIGOXIN INJ 0.25 MG/ML 2 ML AMP IV STA (09:38)
[2019-02-28 09:41] LABS: ANION GAP 11.8 mmol/L (8-16); BLOOD UREA NITROGEN 12 mg/dL (7-26); BUN/CREATININE RATIO 15 (6-25); CALCIUM 10.6 mg/dL (8.4-10.2); CARBON DIOXIDE 26 mmol/L (22-29); CHLORIDE 105 mmol/L (98-107); EST GLOMERULAR FILTRATION RATE > 60 ML/MIN (60-); GLUCOSE 104 mg/dL (74-118); POTASSIUM 3.8 mmol/L (3.5-5.1); SODIUM 139 mmol/L (136-145)
--- NOTE | 2019-02-28 10:06 | Diagnostic Imaging Report ---
Examination: Single AP view of the chest. COMPARISON: 02/25/2019 INDICATION: CHF, atrial fibrillation DISCUSSION: The lungs remain well-inflated and without airspace consolidation, pleural effusion, or pneumothorax. Stable mild enlargement of the cardiac silhouette with tortuosity and atherosclerotic calcification of the thoracic aorta. Pulmonary venous congestion has improved relative to 02/25/2019. No acute osseous abnormality. IMPRESSION: Improved pulmonary venous congestion relative to 02/25/2019. Signed by: Dr. Ant Zavala M.D. on 02/28/2019 10:03 AM
[2019-02-28 11:30] VITALS: BP 103/67
[2019-02-28] MEDS ORDERED: SODIUM CHLORIDE 0.9% 250ML 250 ML ONE (12:07)
[2019-02-28] MEDS: CEFTRIAXONE SOD 1 GM/NS 50 ML 50 ML IV SCH (12:33)
[2019-02-28] MEDS ORDERED: DIGOXIN250 MCG PO (12:52)
[2019-02-28] MEDS ORDERED: XARELTO20 MG PO (12:52)
[2019-02-28] MEDS ORDERED: METOPROLOL SUCC50 MG PO (14:18)
--- NOTE | 2019-02-28 15:16 | Consultation ---
DATE OF CONSULTATION: 02/26/2019 REASON FOR CONSULTATION: Atrial fibrillation. HISTORY OF PRESENT ILLNESS: This is a 68-year-old woman with history of hypertension. She is legally blind, who has had paroxysmal atrial fibrillation for years, used to be managed with medicines. She was refractory to those medicines at that time, however, she was still paroxysmal and she has been in and out of atrial fibrillation. At this time, she presented again with shortness of breath and dizziness and having palpitations for a couple of days, found to have atrial fibrillation with rapid ventricular response, was started on rate control agents with beta-blockers. She still in atrial fibrillation with better rate control, heart rate in the 100. She was restarted on Xarelto, we were consulted for further recommendations. Denies syncope or chest pain. REVIEW OF SYSTEMS: CONSTITUTIONAL: As per HPI. CARDIOVASCULAR: As per HPI. RESPIRATORY: Negative. GASTROINTESTINAL: Negative. GENITOURINARY: Negative. MUSCULOSKELETAL: Negative. EYES: Negative. ENT: Negative. ALLERGIC/IMMUNOLOGIC: Negative. PSYCHIATRIC: Negative. PAST MEDICAL HISTORY: Hypertension, atrial fibrillation. PAST SURGICAL HISTORY: As per HPI. FAMILY HISTORY: No premature coronary artery disease. SOCIAL HISTORY: Denies alcohol or smoking. PHYSICAL EXAMINATION: VITAL SIGNS: Blood pressure 128/60, pulse 100, respirations 20, O2 saturations 98%. GENERAL: No acute distress. HEENT: Moist mucous membranes. CARDIOVASCULAR: Irregular. RESPIRATORY: Clear. ABDOMEN: Soft, nontender. MUSCULOSKELETAL: 2+ distal pulses. NEUROLOGIC: No focal deficits. SKIN: No lesions. PSYCHIATRIC: Normal thought process. IMAGING DATA: EKG atrial fibrillation with rapid ventricular response. IMPRESSION: Atrial fibrillation, highly symptomatic, used to be paroxysmal, now has become persistent refractory to medical therapy. RECOMMENDATIONS: I had discussion with the patient, went over nature of the disease and other options of further antiarrhythmic therapy versus ablation procedure were discussed in detail with benefits and risks. The patient voices understanding and wishes to proceed with plan for atrial fibrillation ablation procedure as an outpatient, in the meantime, I agree with rate control with beta-blockers, also anticoagulation for stroke prophylaxis with Xarelto, she is to be arranged for procedure as an outpatient. We will contact Dr. Osullivan' office to arrange for transesophageal echocardiogram and also we will arrange for CT scan of the heart. Thank you for letting us participate in Ms. Gordon's care. MD NEEMA Motta/MARQUIS /[id number]
== END 2019-02-28 15:10 | disposition home or self-care (01) | DRG 308 ==
LOC: ER 23:41 → ERHOLD 02-25 04:05 → IMCU 02-25 04:54
PROVIDERS: ADMIT Internal Medicine; ATTEND Internal Medicine
DX: I48.91 Unspecified atrial fibrillation (principal); I50.23 Acute on chronic systolic (congestive) heart failure; N39.0 Urinary tract infection, site not specified; I42.9 Cardiomyopathy, unspecified; I11.0 Hypertensive heart disease with heart failure; E07.9 Disorder of thyroid, unspecified
CPT/HCPCS: 36415; 71045; 80048; 80053; 81001; 82550; 82553; 83735; 83880; 84484; 85025; 87086; 93005; 93306; 99284; J0696; J1160; J1940; J7050; J7060

== ENCOUNTER → 2019-11-28 | Outpatient (CLI) | payer MEDICARE, OTHER ==
[~2019-11-28] MED LIST changes: +DIGOXIN250 MCG PO; +LORAZEPAM INJ 2 MG/ML VIAL ONE; +METOPROLOL SUCC50 MG PO; +XARELTO20 MG PO
--- NOTE | 2019-11-28 10:04 | Diagnostic Imaging Report ---
MRI SPINE LUMBAR WO HISTORY: Low back pain, right-sided sciatica COMPARISON: Lumbar spine CT 11/16/2019 TECHNIQUE: Sagittal T1, sagittal T2, sagittal STIR, axial T2, coronal T2, and axial proton density weighted images of the lumbar spine were obtained without contrast. DISCUSSION: Number of non-rib bearing lumbar vertebral bodies: 5. Alignment: Normal lordosis. Subtle lumbar dextroscoliosis is present. Vertebrae: No fractures, infection or neoplasm. Conus medullaris: Normal, ends at L1-L2. Cauda equina: No masses or arachnoiditis. Posterior paraspinal muscles: Well preserved. Mild paraspinal muscle edema in the lower lumbar spine. Soft tissues: Small T2 hyperintense lesion in the right kidney is likely a cyst. Mild to moderate multilevel disc degeneration is most prominent at L5-S1. There may be a right-sided annular fissure at L5-S1. T12-L1: Patent canal and foramina. L1-L2: Mild canal stenosis due to disc bulge and ligamentum flavum thickening. Mild right foraminal stenosis due to asymmetric disc bulge. No significant left foraminal stenosis. L2-L3: Mild canal stenosis due to disc bulge and ligamentum flavum thickening. Mild bilateral foraminal stenoses due to disc bulge and facet arthrosis. L3-L4: Mild canal stenosis due to disc bulge and ligamentum flavum thickening. Mild right and mild to moderate left foraminal stenoses due to disc bulge and facet arthrosis. L4-L5: Mild canal stenosis due to disc bulge and ligamentum flavum thickening. Mild bilateral foraminal stenoses due to disc bulge and facet arthrosis. L5-S1: Moderate right and mild left foraminal stenoses due to asymmetric disc bulge and facet arthrosis. The disc bulge contacts the exiting right L5 nerve root. No significant canal stenosis. IMPRESSION: 1. Mild to moderate multilevel disc degeneration, most prominent at L5-S1 with possible right-sided annular fissure. 2. Multilevel bilateral degenerative foraminal stenoses - moderate on the right at L5-S1. Associated asymmetric disc bulge at L5-S1 contacts the exiting right L5 nerve root. 3. Mild degenerative canal stenoses from L1-L2 to L4-L5. Signed by: Dr. Andrei Kelly M.D. on 11/28/2019 10:02 AM
== END ==
LOC: MRI 08:01
PROVIDERS: ATTEND Internal Medicine
DX: M54.41 Lumbago with sciatica, right side (principal)
CPT/HCPCS: 72148; J2060

== ENCOUNTER → 2019-12-15 | Day surgery (SDC) | payer MEDICARE, OTHER ==
[~2019-12-15] MED LIST changes: +DEXAMETHASONE SOD PHOS 10 MG/1 ML VIAL ONE; +FENTANYL CITRATE/PF 100MCG/2 ML INJ ONE; +IOPAMIDOL 200 MG/ML 20 ML VIAL IT ONE; +LIDOCAINE HCL 1% 30ML-PF VIAL ONE; -LORAZEPAM INJ 2 MG/ML VIAL ONE; +MELOXICAM7.5 MG PO; +MIDAZOLAM HCL 2 MG/2 ML VIAL ONE; +PROPOFOL IV EMULSION 10 MG/ML 20 ML VIAL ONE; +TYLENOL # 31 EA
[2019-12-15 07:22] LABS: BASOPHILS % 0.3 % (0.0-1.0); EOSINOPHILS # (AUTO) 0.1 (0.0-0.4); EOSINOPHILS % 1.4 % (0.0-6.0); HEMATOCRIT 46.4 % (34.2-44.1); LYMPHOCYTES # (AUTO) 2.4 (1.0-3.2); LYMPHOCYTES % 42.7 % (18.0-39.1); MEAN CORPUSCULAR HEMOGLOBIN 31.4 pg (28-32); MEAN CORPUSCULAR HGB CONC 32.3 g/dL (31-35); MEAN CORPUSCULAR VOLUME 97.3 fL (81-99); MONOCYTES # (AUTO) 0.7 (0.2-0.8); MONOCYTES % 12.4 % (4.4-11.3); NEUTROPHILS # (AUTO) 2.5 (2.1-6.9); NEUTROPHILS % 42.9 % (38.7-80.0); PLATELET COUNT 252 x10e3/uL (140-360); RED BLOOD COUNT 4.77 x10e6/uL (3.6-5.1); RED CELL DISTRIBUTION WIDTH 13.1 % (11.7-14.4)
[2019-12-15 08:15] VITALS: BP 145/71
== END | disposition home or self-care (01) ==
LOC: OR 06:42
PROVIDERS: ATTEND Physical Medicine & Rehabilitation Pain Medicine
DX: M54.16 Radiculopathy, lumbar region (principal); M47.896 Other spondylosis, lumbar region; R93.7 Abnormal findings on diagnostic imaging of other parts of musculoskeletal system; I11.0 Hypertensive heart disease with heart failure; I50.9 Heart failure, unspecified; I48.91 Unspecified atrial fibrillation; H93.19 Tinnitus, unspecified ear; H35.52 Pigmentary retinal dystrophy; K21.9 Gastro-esophageal reflux disease without esophagitis; Z79.02 Long term (current) use of antithrombotics/antiplatelets; Z68.31 Body mass index [BMI] 31.0-31.9, adult; Z86.19 Personal history of other infectious and parasitic diseases
CPT/HCPCS: 36415; 64483; 64484; 64493; 64494; 64495; 85025; 93005; J1100; J2001; J2250; J2704; J3010; Q9967; 77003

== ENCOUNTER 2022-05-11 22:14 | Observation (INO) | payer MEDICARE, OTHER ==
[~2022-05-11] VITALS: Ht 172.7 cm; Wt 95.3 kg
[~2022-05-11 22:14] MED LIST changes: -DEXAMETHASONE SOD PHOS 10 MG/1 ML VIAL ONE; -FENTANYL CITRATE/PF 100MCG/2 ML INJ ONE; -IOPAMIDOL 200 MG/ML 20 ML VIAL IT ONE; -LIDOCAINE HCL 1% 30ML-PF VIAL ONE; -MIDAZOLAM HCL 2 MG/2 ML VIAL ONE; -PROPOFOL IV EMULSION 10 MG/ML 20 ML VIAL ONE
[2022-05-11] MEDS ORDERED: ACETAMINOPHEN 325 MG TAB PO ONE ×2 (22:30→23:00)
[2022-05-11] MEDS ORDERED: HYDROCODONE/APAP 10MG-325MG TAB PO ONE (23:00)
[2022-05-11 23:09] LABS: BASOPHILS % 0.3 % (0.0-1.0); EOSINOPHILS # (AUTO) 0.1 (0.0-0.4); EOSINOPHILS % 0.8 % (0.0-6.0); HEMATOCRIT 45.6 % (34.2-44.1); HEMOGLOBIN 15.1 g/dL (12.0-16.0); LYMPHOCYTES # (AUTO) 1.9 (1.0-3.2); LYMPHOCYTES % 20.4 % (18.0-39.1); MEAN CORPUSCULAR HEMOGLOBIN 31.9 pg (28-32); MEAN CORPUSCULAR HGB CONC 33.1 g/dL (31-35); MEAN CORPUSCULAR VOLUME 96.4 fL (81-99); MONOCYTES % 10.5 % (4.4-11.3); NEUTROPHILS # (AUTO) 6.2 (2.1-6.9); NEUTROPHILS % 66.8 % (38.7-80.0); PLATELET COUNT 331 x10e3/uL (140-360); RED BLOOD COUNT 4.73 x10e6/uL (3.6-5.1); RED CELL DISTRIBUTION WIDTH 13.1 % (11.7-14.4)
[2022-05-11 23:26] LABS: ANION GAP 15.4 mmol/L (8-16); CALCIUM 9.6 mg/dL (8.4-10.2); CREATININE, SERUM 0.73 mg/dL (0.57-1.11); POTASSIUM 3.4 mmol/L (3.5-5.1)
[2022-05-11 23:27] LABS: ALBUMIN 3.5 g/dL (3.5-5.0); ALBUMIN/GLOBULIN RATIO 0.8 (0.8-2.0)
[2022-05-11] MEDS: Vancomycin IV 1 GM in SODIUM CHLORIDE 0.9% 250ML 250 ML IV SCH (23:28)
[2022-05-11 23:33] LABS: CREATINE KINASE MB 1.1 ng/mL (0-5.0)
[2022-05-11] MEDS ORDERED: SODIUM CHLORIDE FLUSH 10 ML SYR INJ PRN (23:45)
[2022-05-11] MEDS ORDERED: ACETAMINOPHEN 325 MG TAB PO PRN (23:45)
[2022-05-11] MEDS ORDERED: ONDANSETRON HCL INJ 2MG/ML 2ML 2 MG/ML VIAL IV PRN (23:45)
[2022-05-12 01:50] VITALS: BP 110/50
[2022-05-12] MEDS ORDERED: HYDROCODON-ACE1 EAC9 PO (02:19)
[2022-05-12] MEDS ORDERED: AMIODARONE HCL200 MG PO (02:19)
[2022-05-12] MEDS ORDERED: METAXALONE800 MG PO (02:19)
[2022-05-12 02:21] VITALS: BP 110/50
[2022-05-12] MEDS: Morphine 2mg Syringe 2 MG/ML SYR IV PRN ×2 (04:30→09:09)
[2022-05-12] MEDS ORDERED: SODIUM CHLORIDE 0.9% 250ML 250 ML ONE (05:30)
[2022-05-12 06:05] VITALS: BP 124/76
[2022-05-12 07:59] LABS: BASOPHILS % 0.3 % (0.0-1.0); EOSINOPHILS # (AUTO) 0.1 (0.0-0.4); EOSINOPHILS % 1.2 % (0.0-6.0); HEMATOCRIT 45.4 % (34.2-44.1); HEMOGLOBIN 14.9 g/dL (12.0-16.0); LYMPHOCYTES # (AUTO) 2.3 (1.0-3.2); LYMPHOCYTES % 30.9 % (18.0-39.1); MEAN CORPUSCULAR HEMOGLOBIN 31.6 pg (28-32); MEAN CORPUSCULAR HGB CONC 32.8 g/dL (31-35); MEAN CORPUSCULAR VOLUME 96.2 fL (81-99); MONOCYTES # (AUTO) 0.9 (0.2-0.8); MONOCYTES % 12.5 % (4.4-11.3); NEUTROPHILS # (AUTO) 4.1 (2.1-6.9); NEUTROPHILS % 54.2 % (38.7-80.0); PLATELET COUNT 340 x10e3/uL (140-360); RED BLOOD COUNT 4.72 x10e6/uL (3.6-5.1); RED CELL DISTRIBUTION WIDTH 12.9 % (11.7-14.4)
[2022-05-12 08:23] LABS: ALBUMIN 3.5 g/dL (3.5-5.0); ALBUMIN/GLOBULIN RATIO 0.9 (0.8-2.0); ANION GAP 13.5 mmol/L (8-16); CALCIUM 9.8 mg/dL (8.4-10.2); CREATININE, SERUM 0.68 mg/dL (0.57-1.11); POTASSIUM 3.5 mmol/L (3.5-5.1)
[2022-05-12] MEDS ORDERED: POTASSIUM CHLORIDE 10MEQ EA PO ONE (08:30)
[2022-05-12 08:53] VITALS: BP 124/44
[2022-05-12 08:54] VITALS: BP 124/44
[2022-05-12] MEDS: Vancomycin IV 1 GM in SODIUM CHLORIDE 0.9% 250ML 250 ML IV SCH (10:58)
[2022-05-12 11:59] VITALS: BP 133/82
== END 2022-05-12 13:17 | disposition home or self-care (01) ==
LOC: ER 22:22 → INTOOBSV 23:40 → ERHOLD 23:40 → MED/SURG3 05-12 01:12
PROVIDERS: ADMIT Internal Medicine; ATTEND Internal Medicine
DX: L03.115 Cellulitis of right lower limb (principal); I48.20 Chronic atrial fibrillation, unspecified; H54.8 Legal blindness, as defined in USA; I11.0 Hypertensive heart disease with heart failure; I50.22 Chronic systolic (congestive) heart failure; E87.6 Hypokalemia; Z79.01 Long term (current) use of anticoagulants; E66.9 Obesity, unspecified; E78.5 Hyperlipidemia, unspecified; Z68.31 Body mass index [BMI] 31.0-31.9, adult; Z20.822 Contact with and (suspected) exposure to COVID-19
CPT/HCPCS: 36415 ×2; 80053 ×2; 82550; 82553; 83605 ×2; 84484; 85025 ×2; 87040; 93005; 93971; 99284; G0378 ×2; J0692 ×2; J2270; J2405; J3370 ×2; J7050 ×2; U0002

== ENCOUNTER → 2022-06-23 | Outpatient (CLI) | payer MEDICARE, OTHER ==
[~2022-06-23] MED LIST changes: +AMIODARONE HCL200 MG PO; +HYDROCODON-ACE1 EAC9 PO; +METAXALONE800 MG PO; +MIDAZOLAM HCL 2 MG/2 ML VIAL ONE
== END ==
LOC: MRI 13:31
PROVIDERS: ATTEND Student in an Organized Health Care Education/Training Program
DX: M54.12 Radiculopathy, cervical region (principal); M54.17 Radiculopathy, lumbosacral region
CPT/HCPCS: 72141; 72148; J2250

== ENCOUNTER 2024-09-30 10:26 | Emergency (ER) | payer MEDICARE, OTHER ==
[~2024-09-30] VITALS: Ht 172.7 cm; Wt 95.3 kg
[~2024-09-30 10:26] MED LIST changes: -MIDAZOLAM HCL 2 MG/2 ML VIAL ONE
[2024-09-30 10:50] VITALS: PULSE 84; RESP 15; TEMP 98.2; O2SAT 100
[2024-10-06] MEDS ORDERED: PERCOCET 7.5-31 EACH PO (22:01)
[2024-10-06] MEDS ORDERED: METHOCARBAMOL750 MG PO (22:05)
== END 2024-09-30 15:00 | disposition home or self-care (01) ==
LOC: ER 10:40
DX: M79.605 Pain in left leg (principal); S80.12XA Contusion of left lower leg, initial encounter; W01.0XXA Fall on same level from slipping, tripping and stumbling without subsequent striking against object, initial encounter; Y93.01 Activity, walking, marching and hiking; Y92.89 Other specified places as the place of occurrence of the external cause; H54.8 Legal blindness, as defined in USA; I10 Essential (primary) hypertension; I48.91 Unspecified atrial fibrillation; K21.9 Gastro-esophageal reflux disease without esophagitis; M79.7 Fibromyalgia; M54.9 Dorsalgia, unspecified; G89.29 Other chronic pain
CPT/HCPCS: 70450; 70486; 72125; 72170; 99284